=== PATIENT | female | born 1945 | race Caucasian/White ===

== ENCOUNTER 2018-10-21 08:05 | Emergency (ER) | payer OTHER ==
[2018-10-21 08:17] VITALS: BP 119/76
--- NOTE | 2018-10-21 09:31 | UC ---
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 HAS PAIN AND BRUISING. - History of Current Complaint Chief Complaint: UCLowerExtremity Stated Complaint: TOE INJURY Time Seen by Provider: 10/21/18 09:00 Hx Obtained From: Patient Onset/Duration: Sudden Onset, Lasting Hours, Still Present Severity Initially: Moderate Severity Currently: Moderate Pain Intensity: 4 Pain Scale Used: 0-10 Numeric Aggravating Factor(s): Standing, Ambulation Alleviating Factor(s): Rest Able to Bear Weight: Yes - Allergies/Home Medications Allergies/Adverse Reactions: Allergies Allergy/AdvReac Type Severity Reaction Status Date / Time No Known Allergies Allergy Verified 10/21/18 08:17 PMH/Surg Hx/FS Hx/Imm Hx Previously Healthy: Yes - Surgical History Surgical History: Yes Surgery Procedure, Year, and Place: ORIF LT HIP 2010 - Family History Known Family History: Positive: Non-Contributory - Social History Alcohol Use: Occasionally Substance Use Type: None Smoking Status (MU): Never Smoked Tobacco Review of Systems All Other Systems Reviewed And Are Negative: Yes Constitutional: Positive: Negative Skin: Positive: Bruising Respiratory: Positive: Negative Cardiovascular: Positive: Negative Gastrointestinal: Positive: Negative Musculoskeletal: Positive: Arthralgia, Edema Physical Exam Triage Information Reviewed: Yes Appearance: Well-Appearing, No Pain Distress, Well-Nourished Vital Signs: Initial Vital Signs Temp 96.5 F 10/21/18 08:11 Pulse 69 10/21/18 08:11 Resp 17 10/21/18 08:11 BP 119/76 10/21/18 08:11 Pulse Ox 100 10/21/18 08:11 Vital Signs Reviewed: Yes Eyes: Positive: Conjunctiva Clear ENT: Positive: Hearing grossly normal Neck: Positive: Supple Respiratory: Positive: No respiratory distress, No accessory muscle use Cardiovascular: Positive: Pulses Normal Abdomen Description: Positive: Soft Musculoskeletal: Positive: Edema @ - RIGHT 5TH TOE, Other: - TTP RIGHT 5TH TOE Neurological: Positive: Alert Psychological: Positive: Age Appropriate Behavior Skin: Positive: Other - BRUISING RIGHT 5TH TOE Diagnostics - Radiology RIGHT 5TH TOE XRAY Radiology Interpretation Completed By: Radiologist Summary of Radiographic Findings: Nondisplaced fracture at the medial base of the distal phalanx of the right great toe. Lower Extremity Course/Dx - Course Course Of Treatment: IBUPROFEN, POST OP SHOE. F/U ORTHO. - Differential Dx/Diagnosis Provider Diagnosis: Fracture of fifth toe, right, closed Discharge ED - Sign-Out/Discharge Documenting (check all that apply): Patient Departure All imaging exams completed and their final reports reviewed: Yes - Discharge Plan Condition: Stable Disposition: HOME Prescriptions: Ibuprofen TAB* [Motrin TAB* 600 MG] 1 tab PO Q6H PRN #30 tab PRN Reason: Pain Patient Education Materials: Toe Fracture (ED) Referrals: Esteban Gay MD [Medical Doctor] - 1 Week Jacoby Pereyra MD [Primary Care Provider] - If Needed Additional Instructions: X-RAYS TODAY SHOW A NONDISPLACED FRACTURE AT THE MEDIAL BASE OF THE DISTAL PHALANX OF THE RIGHT GREAT TOE. WEAR THE POSTOP SHOE FOR COMFORT AND TO HELP WITH YOUR MOBILITY. REST, ICE, ELEVATE. OTC MEDICATIONS NEEDED FOR PAIN. FOLLOW-UP WITH ORTHOPEDICS IN THE NEXT WEEK OR 2. - Billing Disposition and Condition Condition: STABLE Disposition: Home
== END 2018-10-21 09:58 | disposition home or self-care (01) ==
LOC: UCEAST 08:05
DX: S92.491A Other fracture of right great toe, initial encounter for closed fracture (principal); W22.8XXA Striking against or struck by other objects, initial encounter; Y92.019 Unspecified place in single-family (private) house as the place of occurrence of the external cause
CPT/HCPCS: 99212; G0463